=== PATIENT | male | born 1955 | race Caucasian/White ===

== ENCOUNTER 2017-01-18 03:38 | Inpatient (IN) | payer OTHER ==
[~2017-01-18] VITALS: Ht 182.9 cm; Wt 101.8 kg
[2017-01-18] VITALS (29 sets, daily range): BP systolic 58–242; BP diastolic 39–123; PULSE 90–154; RESP 12–35; TEMP 95.6–104.7; O2SAT 87–100
[~2017-01-18 03:38] MED LIST: ALPR.5 PO; ASPI81 PO; ATOR10 PO; CARD240C6 PO; CARV3.125 PO; OXYC1SOL5 PO; PRAS10 PO; RAMI2.5 PO
[2017-01-18] MEDS ORDERED: ETOMIDATE 20 MG/10 ML VIAL ONE (03:41)
[2017-01-18] MEDS ORDERED: SODIUM CHLORIDE 0.9% FLUSH 5 ML FLUSH IVF PRN ×2 (04:00→08:30)
[2017-01-18 04:18] LABS: AUTOMATED NEUTROPHIL # 17.2 TH/MM3 (1.8-7.7); BASOPHIL # 0.1 TH/MM3 (0-0.2); BASOPHIL % 0.3 % (0.0-2.0); EOSINOPHIL % 0.1 % (0.0-4.0); HEMATOCRIT 52.9 % (39.0-51.0); LYMPH % 11.8 % (9.0-44.0); LYMPHOCYTE # 2.5 TH/MM3 (1.0-4.8); MEAN CELL VOLUME 95.6 FL (80.0-100.0); MEAN CORPUSCULAR HEMOGLOBIN 31.9 PG (27.0-34.0); MEAN CORPUSCULAR HGB CONC 33.4 % (32.0-36.0); MONO % 5.9 % (0.0-8.0); NEUT % 81.9 % (16.0-70.0); PLATELET COUNT 170 TH/MM3 (150-450); RED BLOOD COUNT 5.54 MIL/MM3 (4.50-5.90); RED CELL DISTRIBUTION WIDTH 13.1 % (11.6-17.2)
[2017-01-18 04:23] LABS: HEMO FLAGS AUTO DIFF
[2017-01-18 04:24] LABS: APTT (PATIENT) 35.6 SEC (24.3-30.1); INTERNATIONAL NORMALIZED RATIO 2.3 RATIO; PROTHROMBIN TIME - PATIENT 26.4 SEC (9.8-11.6)
[2017-01-18] MEDS ORDERED: PROPOFOL 1000 MG/100 ML INJ 100 ML ONE (04:24)
[2017-01-18 04:25] LABS: AMPHETAMINE, URINE NEG (NEG); BARBITURATES, URINE NEG (NEG); COCAINE, URINE NEG (NEG)
[2017-01-18 04:30] LABS: BLOOD, URINE SMALL (NEG); COMMENT (UR) CULT NOT INDICATED; CULTURE IF INDICATED CULT NOT INDICATED; GLUCOSE,URINE 300 mg/dL (NEG); KETONE, URINE 40 mg/dL (NEG); NITRITE,URINE NEG (NEG); URINE COLOR YELLOW (YELLW/STRAW)
[2017-01-18 04:37] LABS: ALKALINE PHOSPHATASE 116 U/L (45-117); TOTAL BILIRUBIN ADULT 1.1 MG/DL (0.2-1.0)
[2017-01-18 04:40] LABS: ALT (GPT) 151 U/L (12-78); ANION GAP 15 MEQ/L (5-15); AST (GOT) 193 U/L (15-37); BICARBONATE 20.7 MEQ/L (21.0-32.0); BLOOD UREA NITROGEN 12 MG/DL (7-18); CHLORIDE 96 MEQ/L (98-107); GLOMERULAR FILTRATION RATE 40 ML/MIN (>89); MAGNESIUM 1.7 MG/DL (1.5-2.5); SODIUM (NA) 132 MEQ/L (136-145)
[2017-01-18] MEDS ORDERED: niCARdipine INJ 25 MG in SODIUM CHLOR 0.9% 250 ML INJ 250 ML IV SCH ×3 (04:45→11:00)
[2017-01-18 04:46] LABS: BLOOD GAS HCO3 18 mmol/L (22-26); BLOOD GAS METHEMOGLOBIN 0.7 % (0-2); BLOOD GAS O2 HGB SATURATION 95 % (90-100); BLOOD GAS PCO2 60 mmHg (38-42); BLOOD GAS PO2 115 mmHG (61-120); BLOOD GAS TOTAL HGB 18.7 G/DL (12.0-16.0); TEMP CORR TO 98.6
[2017-01-18 04:47] LABS: POTASSIUM 3.9 MEQ/L (3.5-5.1)
[2017-01-18 04:47] LABS: CRITICAL VALUE YES; DRAW SITE RT RADIAL; FIO2 100 %; LITER FLOW 15 L/M; NUMBER OF ARTERIAL PUNCTURES 1; OXYGEN DEVICE AMBU; STAT YES; ULNAR PULSE PRESENT
[2017-01-18] MEDS ORDERED: IOHEXOL 350 MG/ML 10 ML VIAL (for RAD DIAG) IV ONE (04:48)
--- NOTE | 2017-01-18 04:57 | RADRPT ---
EXAM DATE/TIME: 01/18/2017 04:18 [facility] COMPARISON: No previous studies available for comparison. INDICATIONS : Altered mental status. Post-code. RADIATION DOSE: 60.95 CTDIvol (mGy) MEDICAL HISTORY : Non-responsive. SURGICAL HISTORY : Non-responsive. ENCOUNTER: Initial ACUITY: 1 day PAIN SCALE: Non-responsive LOCATION: cranial TECHNIQUE: Multiple contiguous axial images were obtained of the head. Using automated exposure control and adj ustment of the mA and/or kV according to patient size, radiation dose was kept as low as reasonably a chievable to obtain optimal diagnostic quality images. FINDINGS: CEREBRUM: Extensive subarachnoid hemorrhage filling the basal cisterns. Hemorrhage extends into the right later al ventricle. Extensive subarachnoid hemorrhage also seen in the sulci of the cerebral hemispheres bi laterally and in the dependent portions of the lateral ventricles bilaterally. Extra-axial hemorrhage is seen anterior to the brainstem. No evidence of midline shift. POSTERIOR FOSSA: The cerebellum and brainstem are intact. The 4th ventricle is midline. The cerebellopontine angle i s unremarkable. EXTRACRANIAL: Mild partial opacification of the frontal, ethmoid, and maxillary sinuses. SKULL: The calvaria is intact. No evidence of skull fracture. CONCLUSION: 1. Extensive subarachnoid hemorrhage bilaterally diffusely. Bilateral lateral ventricle hemorrhage. 2. Prominent pre-pontine and pre-brain stem extra-axial hemorrhage. Luis Mooney MD on January 18, 2017 at 4:49 Board Certified Radiologist. This report was verified electronically.
[2017-01-18] MEDS ORDERED: PHYTONADIONE INJ 10 MG in SODIUM CHLORIDE 0.9% INJ 50 ML IV ONE (05:15)
[2017-01-18] MEDS ORDERED: ETOMIDATE 20 MG/10 ML VIAL IVP ONE (05:15)
[2017-01-18] MEDS ORDERED: PROTHROMBIN COMPLEX CONC INJ 2,000 UNITS in SYRINGE/BAG 1 EA IV ONE (05:15)
[2017-01-18] MEDS ORDERED: SUCCINYLCHOLINE CHLORIDE 200 MG/10 ML VIAL IVP ONE (05:15)
--- NOTE | 2017-01-18 05:37 | RADRPT ---
EXAM DATE/TIME: 01/18/2017 04:18 [facility] COMPARISON: CT BRAIN W/O CONTRAST, January 18, 2017, 4:18. INDICATIONS : Status post-code. IV CONTRAST: 100 cc Omnipaque 350 (iohexol) IV RADIATION DOSE: 28.72 CTDIvol (mGy) MEDICAL HISTORY : Non-responsive. SURGICAL HISTORY : Non-responsive. ENCOUNTER: Initial ACUITY: 1 day PAIN SCALE: Non-responsive LOCATION: cranial TECHNIQUE: Volumetric scanning was performed using a multi-row detector CT scanner. The data was post processed with a variety of visualization algorithms including full volume maximum intensity projection, multi -planar sliding thin slab reformation, curved planar reformation, and surface rendering techniques. Using automated exposure control and adjustment of the mA and/or kV according to patient size, radiat ion dose was kept as low as reasonably achievable to obtain optimal diagnostic quality images. FINDINGS: There is excellent visualization of the major intracranial arteries out to the second-order branch ve ssels. There is no evidence for aneurysm, vessel truncation or stenosis, and no evidence for vascula r malformation. Right vertebral artery is dominant. Extensive subarachnoid hemorrhage is seen in the basal cisterns diffusely. There is also focal acute hematoma at the medial surface of the thalamus on the right and the body of the right lateral ventric le. Prominent parenchymal opacity in the lungs bilaterally. Extensive atherosclerotic disease of the lgaos tid arteries bilaterally. No evidence of high-grade stenosis. CONCLUSION: 1. No intracranial aneurysm identified. 2. Extensive subarachnoid hemorrhage and intraventricular hemorrhage. Hematoma centered in the body o f the right lateral ventricle and medial margin of the right thalamus. Hypertensive hemorrhage origin ating from the thalamus is in the differential diagnosis. Followup MRI may be beneficial. 3. Bilateral upper lung opacity. Luis Mooney MD on January 18, 2017 at 5:19 Board Certified Radiologist. This report was verified electronically.
--- NOTE | 2017-01-18 05:38 | RADRPT ---
EXAM DATE/TIME: 01/18/2017 04:49 [facility] COMPARISON: No previous studies available for comparison. INDICATIONS : Syncopal episode, found unresponsive at home. E-T tube placement. MEDICAL HISTORY : None. SURGICAL HISTORY : None. ENCOUNTER: Initial ACUITY: 1 day PAIN SCORE: Non-responsive. LOCATION: Bilateral chest FINDINGS: Single AP view of the chest. Endotracheal tube is in place with the tip 4 cm above the tonny. Nasoga stric tube is in place with the tip in the stomach. Moderate to severe right mid to upper lung opacit y. Mild left mid to upper lung opacity. No evidence of pneumothorax or pleural effusion. Cardiomedias tinal silhouette within normal limits. CONCLUSION: Right greater than left upper lung pulmonary consolidation. Nasogastric and endotracheal tubes in christina ce.. Luis Mooney MD on January 18, 2017 at 5:36 Board Certified Radiologist. This report was verified electronically.
--- NOTE | 2017-01-18 05:41 | PD ---
HPI Chief Complaint: Code Blue Time Seen by Provider: 03:55 Travel History International Travel<30 days: No Contact w/Intl Traveler<30days: No Traveled to known affect area: No History of Present Illness HPI This is Luisito TorresPHILIP 1955, 60 year-old man history of in June of last year, minimal contact with the health care system before that. Brought in by EMS obtunded. Patient was reportedly found down in his closet. His states today with the bed together maybe a little bit before she found him down. The history is a little bit unclear. EMS reports that when they found him he was cyanotic and mottled, and not breathing. They did chest compressions and CPR. Then got return of spontaneous circulation. Atypically intubated. He had a lot of fluid in the airway. They placed a Combitube. EMS initially called a STEMI alert because of ST changes on the EKG. History Past Medical History Narrative Medical A. fib Medical History: Unable to Obtain Past Surgical History Surgical History: Unable to Obtain Social History Tobacco Use: Yes Allergies-Medications (Allergen,Severity, Reaction): Coded Allergies: UNOBTAINABLE (Unverified , 01/18/17) Reported Meds & Prescriptions Reported Meds & Active Scripts Active Active Prescriptions or Reported Medications Unobtainable Review of Systems Except as stated in HPI: all other systems reviewed are Neg Physical Exam Narrative GENERAL: Obtunded 60 year-old man, ill-appearing, mottled and cyanotic. SKIN: Warm and dry. EYES: Pupils equal and round. No scleral icterus. No injection or drainage. ENT: No nasal bleeding or discharge. Mucous membranes pink and moist. NECK: Trachea midline. No JVD. CARDIOVASCULAR: Heart rate rapid. No appreciable murmurs. RESPIRATORY: Rapid abnormal breathing. Coarse breath sounds. GASTROINTESTINAL: Abdomen soft, non-tender, nondistended. Hepatic and splenic margins not palpable. MUSCULOSKELETAL: Normal bulk and tone. No gross deformity. NEUROLOGICAL: Obtunded. No response to any stimuli. Rapid abnormal breathing. Data Data Last Documented VS Vital Signs Date Time Temp Pulse Resp B/P Pulse Ox O2 Delivery O2 Flow Rate FiO2 01/18/17 03:45 140 18 180/118 90 01/18/17 03:45 99.2 01/18/17 03:45 Bag Valve Orders Etomidate Inj (Amidate Inj) (01/18/17 03:41) Electrocardiogram (01/18/17 03:55) Complete Blood Count With Diff (01/18/17 03:55) Comprehensive Metabolic Panel (01/18/17 03:55) Magnesium (Mg) (01/18/17 03:55) Prothrombin Time / Inr (Pt) (01/18/17 03:55) Act Partial Throm Time (Ptt) (01/18/17 03:55) Troponin I (01/18/17 03:55) Chest, Single Ap (01/18/17 03:55) Ecg Monitoring (01/18/17 03:55) Bilateral Bp Monitoring (01/18/17 03:55) Iv Access Insert/Monitor (01/18/17 03:55) Oximetry (01/18/17 03:55) Oxygen Administration (01/18/17 03:55) Sodium Chloride 0.9% Flush (Ns Flush) (01/18/17 04:00) Lactic Acid Sepsis Protocol (01/18/17 03:55) Influenzae A/B Antigen (01/18/17 03:55) Blood Culture (01/18/17 03:55) Ct Brain W/O Iv Contrast(Rout) (01/18/17 ) Drug Screen, Random Urine (01/18/17 03:55) Urinalysis - C+S If Indicated (01/18/17 03:55) Propofol 1000 Mg/100 Ml Inj (Diprivan 10 (01/18/17 04:24) Cta Brain W Iv Contrast W 3d (01/18/17 ) Nicardipine Inj (Cardene Inj) (01/18/17 04:45) Arterial Blood Gas (Abg) (01/18/17 04:03) Iohexol 350 Inj (Omnipaque 350 Inj) (01/18/17 04:48) Arterial Blood Gas (Abg) (01/18/17 ) Vitamin K (01/18/17 04:58) Prothrombin Complex Conc Inj (Kcentra In (01/18/17 05:15) Phytonadione Inj (Vitamin K Inj) (01/18/17 05:15) Ng Gastric Tube Insert/Monitor (01/18/17 05:12) Urinary Catheter Insert/Apply (01/18/17 05:12) Etomidate Inj (Amidate Inj) (01/18/17 05:15) Succinylcholine Inj (Quelicin Inj) (01/18/17 05:15) Restraints Non-Violent TEDDY.Q3H (01/18/17 05:12) Labs Laboratory Tests Test 01/18/17 01/18/17 04:00 04:03 White Blood Count 21.0 TH/MM3 Red Blood Count 5.54 MIL/MM3 Hemoglobin 17.7 GM/DL Hematocrit 52.9 % Mean Corpuscular Volume 95.6 FL Mean Corpuscular Hemoglobin 31.9 PG Mean Corpuscular Hemoglobin 33.4 % Concent Red Cell Distribution Width 13.1 % Platelet Count 170 TH/MM3 Mean Platelet Volume 10.4 FL Neutrophils (%) (Auto) 81.9 % Lymphocytes (%) (Auto) 11.8 % Monocytes (%) (Auto) 5.9 % Eosinophils (%) (Auto) 0.1 % Basophils (%) (Auto) 0.3 % Neutrophils # (Auto) 17.2 TH/MM3 Lymphocytes # (Auto) 2.5 TH/MM3 Monocytes # (Auto) 1.2 TH/MM3 Eosinophils # (Auto) 0.0 TH/MM3 Basophils # (Auto) 0.1 TH/MM3 CBC Comment AUTO DIFF Prothrombin Time 26.4 SEC Prothromb Time International 2.3 RATIO Ratio Activated Partial 35.6 SEC Thromboplast Time Urine Color YELLOW Urine Turbidity CLEAR Urine pH 7.0 Urine Specific [place] 1.019 Urine Protein 300 mg/dL Urine Glucose (UA) 300 mg/dL Urine Ketones 40 mg/dL Urine Occult Blood SMALL Urine Nitrite NEG Urine Bilirubin NEG Urine Urobilinogen LESS THAN 2.0 MG/DL Urine Leukocyte Esterase NEG Urine RBC 12 /hpf Urine WBC 6 /hpf Microscopic Urinalysis Comment CULT NOT INDICATED Sodium Level 132 MEQ/L Potassium Level 3.9 MEQ/L Chloride Level 96 MEQ/L Carbon Dioxide Level 20.7 MEQ/L Anion Gap 15 MEQ/L Blood Urea Nitrogen 12 MG/DL Creatinine 1.51 MG/DL Estimat Glomerular Filtration 40 ML/MIN Rate Random Glucose 248 MG/DL Lactic Acid Level 4.8 mmol/L Calcium Level 8.4 MG/DL Magnesium Level 1.7 MG/DL Total Bilirubin 1.1 MG/DL Aspartate Amino Transf 193 U/L (AST/SGOT) Alanine Aminotransferase 151 U/L (ALT/SGPT) Alkaline Phosphatase 116 U/L Troponin I 0.94 NG/ML Total Protein 7.2 GM/DL Albumin 3.5 GM/DL Urine Opiates Screen NEG Urine Barbiturates Screen NEG Urine Amphetamines Screen NEG Urine Benzodiazepines Screen POS Urine Cocaine Screen NEG Urine Cannabinoids Screen NEG Blood Gas Puncture Site RT RADIAL Blood Gas Patient Temperature 98.6 Blood Gas HCO3 18 mmol/L Blood Gas Base Excess -10.0 mmol/L Blood Gas Oxygen Saturation 95 % Arterial Blood pH 7.11 Arterial Blood Partial 60 mmHg Pressure CO2 Arterial Blood Partial 115 mmHG Pressure O2 Arterial Blood Oxygen Content 25.0 Vol % Arterial Blood 0.0 % Carboxyhemoglobin Arterial Blood Methemoglobin 0.7 % Blood Gas Hemoglobin 18.7 G/DL Oxygen Delivery Device AMBU Blood Gas Liter Flow 15 L/M Blood Gas Inspired Oxygen 100 % [facility] Medical Decision Making Medical Screen Exam Complete: Yes Emergency Medical Condition: Yes Interpretation(s) LABS: CBC remarkable for leukocytosis, elevated H&H CMP remarkable for elevated glucose, elevated creatinine, elevated total bili and AST ALT Troponin 0.94 Lactate 4.8 ABG 7.11/60/1:15/18, base excess -10 UA with protein and glucose Urine tox positive for benzos My review of Chest x-ray: Right sided infiltrates. ET tube in good position. Head CT: Since his subarachnoid hemorrhage bilateral, diffusely. Bilateral lateral ventricle hemorrhage. Prominent pre-Pontene and pre-brainstem extra- axial hemorrhage. Differential Diagnosis VT, ICH, tumor, seizure, drugs, infection, sepsis, other Narrative Course Medical decision making This is a 60-year-old man who presented obtunded of unclear etiology. There is some concern for VT initially. EKG done on arrival did not show any ST elevation VT. Patient looked poorly perfused with cyanosis and mottling despite a high blood pressure. Rapid bedside ultrasound did not show evidence of hemorrhage. He had reportedly some rectal bleeding. Rectal exam showed a bleeding hemorrhoid. High concern for ICH. Patient was taken to head CT which confirmed intracerebral bleed. INR also returned elevated. Further medical information was also obtained for the whitish of the patient was on warfarin. Case central was ordered. I spoke to neurosurgery is aware the patient will follow. I spoke to radiology who states that the bleed is suspicious for aneurysmal bleed however they do not see anything on the initial on reconstructed CTA. We'll follow the CTA results. Blood pressure remained elevated in nicardipine drip was started. Patient will be admitted to the ICU. Critical Care Narrative Aggregate critical care time was 45 minutes. Time to perform other separately billable procedures was not included in the critical care time. My time did not include minutes spent treating any other patients simultaneously or on activities that did not directly contribute to the patient's treatment. The services I provided to this patient were to treat and/or prevent clinically significant deterioration that could result in: , disability, stroke, increased morbidity, unrecognized intracerebral bleed, other I provided critical care services requiring my management, as noted below: Chart data review, documentation time, medication orders and management, vital sign assessments/reviewing monitor data, ordering and reviewing lab tests, ordering and interpreting/reviewing x-rays and diagnostic studies, care of the patient and discussion of the patient with the admitting physicians. Procedures Procedure Narrative INTUBATION: The patient was put in optimal position for the procedure. Rapid sequence intubation was initiated by me using 20 milligrams of etomidate IV and 100 milligrams of succinylcholine IV. The patient was intubated with a 8.0 cuffed endotracheal tube. Tube placement was confirmed by visualization of the tube and balloon passing through the cords, capnometry and subsequent chest x- ray. Breath sounds were equal and well aerated bilaterally postintubation. No breath sounds over stomach. Patient tolerated procedure well. Point of care ultrasound: Rapid point of care ultrasound was performed by myself at the bedside to evaluate for the etiology of patient's apparent shock. Heart rate is rapid. EF appeared grossly normal. There is no evidence of pneumothorax. There is no evidence of AAA. There is no fluid in the abdomen. Diagnosis Primary Impression: Acute intra-cranial hemorrhage Additional Impression: Cardiac arrest Admitting Information Admitting Physician Requests: Admit Scripts Unable to Obtain Active Prescriptions or Reported Meds Geovanni Pike MD Jan 18, 2017 05:41
[2017-01-18 05:49] LABS: SCAN/DIFF AUTO DIFF CONFIRMED
[2017-01-18] MEDS ORDERED: fentaNYL DRIP 250 ML ONE (06:11)
[2017-01-18 06:12] LABS: LACTIC ACID GHOST NOT REPORTABLE
[2017-01-18] MEDS ORDERED: fentaNYL DRIP 250 ML IV SCH (06:15)
[2017-01-18 06:21] LABS: BLOOD GAS BASE EXCESS -10.1 mmol/L (-2-2); BLOOD GAS CARBOXYHEMOGLOBIN 0.3 % (0-4); BLOOD GAS HCO3 17 mmol/L (22-26); BLOOD GAS METHEMOGLOBIN 0.9 % (0-2); BLOOD GAS O2 HGB SATURATION 89 % (90-100); BLOOD GAS OXYGEN CONTENT 25.7 Vol % (12.0-20.0); BLOOD GAS PCO2 53 mmHg (38-42); BLOOD GAS PO2 75 mmHG (61-120); BLOOD GAS TOTAL HGB 20.7 G/DL (12.0-16.0); CRITICAL VALUE YES; TEMP CORR TO 98.6
[2017-01-18 06:22] LABS: DRAW SITE RT RADIAL; FIO2 100 %; NUMBER OF ARTERIAL PUNCTURES 1; OXYGEN DEVICE VENTILATOR; STAT YES; ULNAR PULSE PRESENT; VENT SETTINGS PRVC
[2017-01-18] MEDS: SODIUM CHLOR 0.9% 1000 ML INJ 1,000 ML IV SCH ×3 (06:30→20:23)
[2017-01-18] MEDS ORDERED: PROPOFOL 1000 MG/100 ML INJ 100 ML IV SCH ×2 (06:30→08:30)
[2017-01-18] MEDS ORDERED: ACETAMINOPHEN 1000 MG/100 ML VIAL IV ONE (06:30)
[2017-01-18] MEDS ORDERED: MISCELLANEOUS NURSING INFORMATION XX SCH (06:30)
[2017-01-18] MEDS ORDERED: RESP: ALBUTEROL 2.5 MG/IPRATROPIUM 0.5 MG NEB (PRN) INH (06:30)
[2017-01-18] MEDS ORDERED: CHLORHEXIDINE GLUCONATE 2 % 1 PACK (2 CLOTHS) TOP PRN (06:30)
[2017-01-18] MEDS ORDERED: ACETAMINOPHEN 325 MG TAB PO PRN (06:30)
[2017-01-18] MEDS ORDERED: SODIUM CHLORIDE 0.9% FLUSH 5 ML FLUSH IV FLUSH PRN (06:30)
[2017-01-18] MEDS ORDERED: ONDANSETRON HCL 4 MG/2 ML VIAL IV PRN (06:30)
--- NOTE | 2017-01-18 06:51 | HHI.HP ---
[facility] Service Critical Care Medicine Primary Care Physician Denis Miranda, DO Admission Diagnosis intracranial hemorrhage, cardiac arrest Diagnosis: Chief Complaint: Found down at home, CPR delayed. Travel History International Travel<30 Days: No Contact w/Intl Traveler <30 Da: No Traveled to Known Affected Are: No History of Present Illness About 60 year old man found down at home by after delay. EMS found asystole and started CPR. In ED found to have diffuse SAH with no aneurysm. Past Family Social History Allergies: Coded Allergies: UNOBTAINABLE (Unverified , 01/18/17) Past Medical History Past Medical History Narrative Medical A. fib Medical History: Unable to Obtain Past Surgical History Surgical History: Unable to Obtain Social History Tobacco Use: Yes Allergies-Medications Allergies-Medications (Allergen,Severity, Reaction): Coded Allergies: UNOBTAINABLE (Unverified , 01/18/17) Reported Meds & Prescriptions Reported Meds & Active Scripts Active Active Prescriptions or Reported Medications Unobtainable Physical Exam Vital Signs Vital Signs Date Time Temp Pulse Resp B/P Pulse Ox O2 Delivery O2 Flow Rate FiO2 01/18/17 05:59 100 01/18/17 04:15 107 16 184/111 95 01/18/17 04:05 120 24 179/113 99 01/18/17 04:00 114 12 217/109 92 01/18/17 03:50 124 16 201/121 99 01/18/17 03:47 100 01/18/17 03:45 140 18 180/118 90 01/18/17 03:45 124 30 95 01/18/17 03:45 120 20 171/113 99 01/18/17 03:45 99.2 124 35 180/121 92 01/18/17 03:45 99 Bag Valve 01/18/17 03:45 120 30 92 Bag Valve Physical Exam PE: P 148, BP 179/97, R 30, Sats 98%, temp 104 Head: Atraumatic. Neck: Supple, orally intubated. Lungs: Diffuse sonorous rhonchi, good shabbir air movement. Heart: Tachycardia, no JVD. Abdomen> Soft, no guarding. Healed right subcostal scar. BS quiet. Extremities: Mottled, poorly perfused. Toes cold. Neuro: Right pupil 4 mm, left 2 mm. Both minimally reactive. No spontaneous movement. Breathes over vent. Laboratory Laboratory Tests Test 01/18/17 01/18/17 01/18/17 04:00 04:03 06:00 White Blood Count 21.0 Red Blood Count 5.54 Hemoglobin 17.7 Hematocrit 52.9 Mean Corpuscular Volume 95.6 Mean Corpuscular Hemoglobin 31.9 Mean Corpuscular Hemoglobin 33.4 Concent Red Cell Distribution Width 13.1 Platelet Count 170 Mean Platelet Volume 10.4 Neutrophils (%) (Auto) 81.9 Lymphocytes (%) (Auto) 11.8 Monocytes (%) (Auto) 5.9 Eosinophils (%) (Auto) 0.1 Basophils (%) (Auto) 0.3 Neutrophils # (Auto) 17.2 Lymphocytes # (Auto) 2.5 Monocytes # (Auto) 1.2 Eosinophils # (Auto) 0.0 Basophils # (Auto) 0.1 CBC Comment AUTO DIFF Differential Comment AUTO DIFF CONFIRMED Prothrombin Time 26.4 Prothromb Time International 2.3 Ratio Activated Partial 35.6 Thromboplast Time Urine Color YELLOW Urine Turbidity CLEAR Urine pH 7.0 Urine Specific [place] 1.019 Urine Protein 300 Urine Glucose (UA) 300 Urine Ketones 40 Urine Occult Blood SMALL Urine Nitrite NEG Urine Bilirubin NEG Urine Urobilinogen LESS THAN 2.0 Urine Leukocyte Esterase NEG Urine RBC 12 Urine WBC 6 Microscopic Urinalysis Comment CULT NOT INDICATED Sodium Level 132 Potassium Level 3.9 Chloride Level 96 Carbon Dioxide Level 20.7 Anion Gap 15 Blood Urea Nitrogen 12 Creatinine 1.51 Estimat Glomerular Filtration 40 Rate Random Glucose 248 Lactic Acid Level 4.8 Calcium Level 8.4 Magnesium Level 1.7 Total Bilirubin 1.1 Aspartate Amino Transf 193 (AST/SGOT) Alanine Aminotransferase 151 (ALT/SGPT) Alkaline Phosphatase 116 Troponin I 0.94 Total Protein 7.2 Albumin 3.5 Urine Opiates Screen NEG Urine Barbiturates Screen NEG Urine Amphetamines Screen NEG Urine Benzodiazepines Screen POS Urine Cocaine Screen NEG Urine Cannabinoids Screen NEG Blood Gas Puncture Site RT RADIAL RT RADIAL Blood Gas Patient Temperature 98.6 98.6 Blood Gas HCO3 18 17 Blood Gas Base Excess -10.0 -10.1 Blood Gas Oxygen Saturation 95 89 Arterial Blood pH 7.11 7.14 Arterial Blood Partial 60 53 Pressure CO2 Arterial Blood Partial 115 75 Pressure O2 Arterial Blood Oxygen Content 25.0 25.7 Arterial Blood 0.0 0.3 Carboxyhemoglobin Arterial Blood Methemoglobin 0.7 0.9 Blood Gas Hemoglobin 18.7 20.7 Oxygen Delivery Device AMBU VENTILATOR Blood Gas Liter Flow 15 Blood Gas Inspired Oxygen 100 100 Blood Gas Ventilator Setting [facility] Date/Time Procedure Status Source Growth 01/18/17 04:05 Aerobic Blood Culture Received Blood Peripheral Pending 01/18/17 04:05 Anaerobic Blood Culture Received Blood Peripheral Pending Result Diagram: 01/18/17 0400 01/18/17 0400 Assessment and Plan Problem List: (1) Cardiac arrest ICD Code: I46.9 Status: Acute (2) SAH (subarachnoid hemorrhage) ICD Code: I60.9 Status: Acute (3) Acute respiratory failure with hypoxia ICD Code: J96.01 Status: Acute (4) Coagulopathy ICD Code: D68.9 Status: Acute (5) CKD (chronic kidney disease) ICD Code: N18.9 Status: Acute (6) NAOMI (acute kidney injury) ICD Code: N17.9 Status: Acute (7) Pneumonia ICD Code: J18.9 Status: Acute Assessment and Plan Plan: 1. Maintain SBP < 140 until aneurysm ruled out. 2. Cardene gtt. 3. Hydration with NS. 4. Protonix. 5. No chemical DVT px 6. PRVC vent mode. 7. EtCO2 in neutral range. 8. Cardiac markers, serial. 9. SCDs. 10. Followup coag profile. Overall impression: He is critically ill following an [id number], unwitnessed cardiac arrest. Found to have a subarachnoid hemorrhage, possibly from a fall or spontaneous. Prognosis is guarded at best. Critical care 40 mins aside from procedures. Aashish Jean MD Jan 18, 2017 06:51
[2017-01-18] MEDS: PIPERACIL-TAZO 3.375 GM PREMIX 50 ML IV SCH ×3 (07:36→20:25)
[2017-01-18] MEDS: CHLORHEXIDINE 0.12% (ORAL KIT) 15 ML CUP MT SCH (08:00)
[2017-01-18] MEDS: LEVOFLOXACIN 750 MG PREMIX INJ 150 ML IV SCH (08:00)
[2017-01-18 08:01] LABS: INTERNATIONAL NORMALIZED RATIO 1.2 RATIO; PROTHROMBIN TIME - PATIENT 13.6 SEC (9.8-11.6)
[2017-01-18] MEDS ORDERED: LABETALOL HCL 100 MG/20 ML VIAL IV PRN (08:30)
--- NOTE | 2017-01-18 08:33 | PD.OP ---
Operative Report Date of Surgery: Jan 18, 2017 Preoperative Diagnosis: Right intraventricular hemorrhage along with a diffuse subarachnoid hemorrhage Postoperative Diagnosis: Same Procedure: Right frontal twist drill hole ventriculostomy placement Anesthesia: Local with sedation Surgeon: Messi Piedra M.D. Battery Filler(s): None Operation and Findings: Following continuation of Diprivan and fentanyl drips with the oxygen saturation and hemodynamic monitoring in the intensive care unit, the right frontal region was shaved and the prep with chlor prep and sterilely draped. Using landmarks of 11 cm behind the nasion and 3 cm to the right of the midline , a 1 cm scalp incision was made after infiltrating with 1% lidocaine with epinephrine solution. With a handheld drill a twist drill hole was made in the underlying dura penetrated with a blunt probe. The bactiseal ventriculostomy catheter was then passed into the lateral ventricle at a depth of 8 cm bloody CSF encountered with an opening pressure around 18 cm H20. After drainage of 10 mL CSF the pressures was down to 10 cm H20. The distal end of the ventriculostomy was then tunneled under the scalp with a trocar and secured to the exit site with a 3-0 nylon thigh and connected to a drainage bag. Scalp incision site was approximated with 3-0 nylon interrupted stitches A sterile dressing was applied. There were no complications and blood loss was less than 5 cc. Messi Piedra MD Jan 18, 2017 08:33
[2017-01-18] MEDS: PANTOPRAZOLE SODIUM 40 MG VIAL IV SCH (09:00)
[2017-01-18] MEDS: SODIUM CHLORIDE 0.9% FLUSH 5 ML FLUSH IVF SCH (09:00)
[2017-01-18] MEDS: LACTULOSE SYRUP 20 GM/30 ML CUP PO SCH (09:00)
[2017-01-18] MEDS: SODIUM CHLORIDE 0.9% FLUSH 5 ML FLUSH IV FLUSH SCH (09:00)
--- NOTE | 2017-01-18 09:12 | MB ---
cc: ANAMARIA CORBIN D.O., ROHIT K. M.D. DATE OF CONSULTATION: 01/18/2017 REASON FOR CONSULTATION Intracranial hemorrhage. HISTORY OF PRESENT ILLNESS This is a 60-year-old gentleman who was brought to [facility] Emergency Room after he was found unresponsive this morning on the floor by his . He was defibrillated and apparently was in asystole by the paramedics on arrival and also had a Combitube placed for respiratory arrest. He presented to the emergency room and was hypertensive with initial blood pressure systolic in the 180s along with tachycardia. The Combitube was converted to an endotracheal tube and he has been on ventilator support with a Cardene drip along with Diprivan and fentanyl. His Lawson Coma Score was a 3 on arrival and has not improved despite resuscitation. A CT scan of the head obtained reveals extensive subarachnoid hemorrhage involving bilateral convexities as well as the basal cisterns along with hemorrhage overlying the tentorium. There is also intraventricular hemorrhage of the body of the right lateral ventricle around the thalamus as well as occipital horns with moderate hydrocephalus. No discrete or large intraparenchymal hemorrhage is noted. He is on chronic Coumadin therapy for atrial fibrillation and also on aspirin and Plavix therapy for myocardial infarction last October and had stents placed at that time. His PT and INR are elevated at 26.4 and 2.3 on arrival. The relates that yesterday the patient started complaining of a headache and also vomited at one point. He does have a history of hypertension and he takes medications for this. PAST MEDICAL HISTORY 1. Atrial fibrillation. 2. Myocardial infarction, status post coronary stenting in October 2016. 3. Hypertension. 4. Hyperlipidemia. MEDICATIONS 1. Coumadin. 2. Aspirin. 3. Plavix. 4. Along with blood pressure medications. SOCIAL HISTORY He is and his is here with him as well as some other family members. Reportedly he does smoke cigarettes. REVIEW OF SYSTEMS Unobtainable. The patient is comatose. LABORATORY FINDINGS PT 26.4, INR 2.3, PTT 35.6. Sodium 132, potassium 3.9, BUN 12, creatinine 1.51, glucose 248, lactic acid 4.8. Troponin 0.94. White blood cell count 21, hemoglobin 17.7, platelet count 170. PHYSICAL EXAMINATION VITAL SIGNS: Temperature 102.6, pulse 144, respiratory rate 20, blood pressure 213/92 on a Cardene drip, Diprivan and fentanyl drips. His ABGs reveal a pH of 7.14 with PCO2 53, oxygen saturation 89%, PO2 75 on 100% FIO2. HEAD: No Billy's or raccoon sign. NECK: Supple. No guarding or rigidity. CHEST: Clear to auscultation bilaterally. HEART: Tachycardia. Irregular rhythm. ABDOMEN: Soft, nontender. EXTREMITIES: No cyanosis, edema or deformity. NEUROLOGIC: When sedation is withheld he does not open his eyes. Right pupil is 5 mm and nonreactive. Left pupil is 2 mm and nonreactive. Negative corneal. Negative gag. Negative cough reflex. No motor response to painful stimulation. The only viable brainstem reflex is that he has spontaneous respirations over the ventilator. IMPRESSION 1. Extensive subarachnoid hemorrhage involving the basal cisterns as well as the tentorium and bilateral hemispheres as well as intraventricular hemorrhage and occipital horns in the right lateral ventricle body with moderate hydrocephalus and developing MEDICAL EQUIPMENT TECHNICIAN infarcts bilaterally. He is coagulopathic with elevated PT and INR from Coumadin and also on aspirin and Plavix therapy for his recent myocardial infarction and coronary stenting along with atrial fibrillation. 2. Unregulated hypertension. 3. Cardiopulmonary arrest. PLAN The patient has received Kcentra and vitamin-K to correct his PT and INR, and repeat coags are pending. Unfortunately this is a devastating neurologic insult and the likelihood of recovery is extremely poor, and more likely will progress to clinical brain relatively soon in my opinion. He also has other co-morbidities, in particular his cardiac issues and respiratory failure. The obviously is very distraught over his condition and findings and requested that I undertake surgical intervention. The only possibility is to offer ventriculostomy placement to see if this alleviates some of the intracranial pressure and drain the intraventricular hemorrhage, although I doubt this is going to make any difference in his outcome. She is requesting that we proceed with this and accordingly an informed consent was obtained and the procedure undertaken at the bedside in the emergency room. He will be admitted to the surgical intensive care unit with continued supportive care and hypertension regulation. She did relate to me that although he does not have a living will he has expressed his wishes that he would not want prolonged ventilator support should his outcome be dismal. MD ETHAN Green /7:37 AM /7:55 AM
[2017-01-18] MEDS ORDERED: SODIUM BICARBONATE 8.4% INJ 50 MEQ/50 ML SYR ONE ×3 (09:49→10:49)
[2017-01-18] MEDS ORDERED: SODIUM BICARBONATE 8.4% INJ 50 ML ONE (10:50)
[2017-01-18] MEDS ORDERED: SODIUM CHLOR 0.9% 1000 ML INJ 1,000 ML IV ONE (11:00)
[2017-01-18 11:01] LABS: BLOOD GAS BASE EXCESS -10.4 mmol/L (-2-2); BLOOD GAS CARBOXYHEMOGLOBIN 0.5 % (0-4); BLOOD GAS HCO3 16 mmol/L (22-26); BLOOD GAS METHEMOGLOBIN 0.8 % (0-2); BLOOD GAS O2 HGB SATURATION 98 % (90-100); BLOOD GAS OXYGEN CONTENT 25.5 Vol % (12.0-20.0); BLOOD GAS PCO2 40 mmHg (38-42); BLOOD GAS PO2 317 mmHg (61-120); TEMP CORR TO 98.6
[2017-01-18 11:02] LABS: CRITICAL VALUE YES; OXYGEN DEVICE VENTILATOR
[2017-01-18 11:03] LABS: DRAW SITE ART LINE; FIO2 100 %; NUMBER OF ARTERIAL PUNCTURES 0; STAT YES; ULNAR PULSE PRESENT; VENT SETTINGS PRVC/AC
[2017-01-18 15:28] LABS: BLOOD GAS BASE EXCESS -8.9 mmol/L (-2-2); BLOOD GAS CARBOXYHEMOGLOBIN 0.7 % (0-4); BLOOD GAS HCO3 17 mmol/L (22-26); BLOOD GAS METHEMOGLOBIN 0.7 % (0-2); BLOOD GAS O2 HGB SATURATION 95 % (90-100); BLOOD GAS PCO2 36 mmHg (38-42); BLOOD GAS PO2 95 mmHg (61-120); BLOOD GAS TOTAL HGB 17.1 G/DL (12.0-16.0); CRITICAL VALUE YES; OXYGEN DEVICE VENTILATOR; TEMP CORR TO 98.6
[2017-01-18 15:29] LABS: DRAW SITE ART LINE; FIO2 50 %; STAT NO
--- NOTE | 2017-01-18 15:32 | EKG ---
Date Performed: 01/18/2017 Time Performed: 03:47:18 PTAGE: 89 years EKG: SINUS TACHYCARDIA MARKED LEFT AXIS DEVIATION SEPTAL MYOCARDIAL INFARCTION Marked narrow bas ed peaked T waves. Hyperkalemia should be excluded clinically. Myocardial ischemia should also be con sidered and excluded. No prior tracing for comparison ABNORMAL ECG NO PREVIOUS TRACING DOCTOR: Michelle Sesay Interpretating Date/Time 01/18/2017 15:31:54
[2017-01-18 15:38] LABS: BICARBONATE 23.2 MEQ/L (21.0-32.0); POTASSIUM 4.9 MEQ/L (3.5-5.1)
[2017-01-18 16:23] LABS: CALCIUM-PROTEIN CORRECTED 7.9 MG/DL (8.5-10.1)
[2017-01-18] MEDS: fentaNYL DRIP 250 ML IV SCH (20:26)
[2017-01-19] VITALS (16 sets, daily range): BP systolic 118–128; BP diastolic 57–68; PULSE 82–96; RESP 13–19; TEMP 97.8–100.1; O2SAT 96–100
[2017-01-19] MEDS: CHLORHEXIDINE 0.12% (ORAL KIT) 15 ML CUP MT SCH ×3 (00:36→19:58)
[2017-01-19] MEDS: SODIUM CHLORIDE 0.9% FLUSH 5 ML FLUSH IV FLUSH SCH ×3 (00:37→19:58)
[2017-01-19] MEDS: SODIUM CHLORIDE 0.9% FLUSH 5 ML FLUSH IVF SCH ×3 (00:37→19:59)
[2017-01-19] MEDS: SODIUM CHLOR 0.9% 1000 ML INJ 1,000 ML IV SCH ×4 (00:37→19:59)
[2017-01-19 04:08] LABS: BLOOD GAS BASE EXCESS -6.9 mmol/L (-2-2); BLOOD GAS CARBOXYHEMOGLOBIN 0.9 % (0-4); BLOOD GAS HCO3 17 mmol/L (22-26); BLOOD GAS METHEMOGLOBIN 0.8 % (0-2); BLOOD GAS O2 HGB SATURATION 97 % (90-100); BLOOD GAS OXYGEN CONTENT 19.9 Vol % (12.0-20.0); BLOOD GAS PCO2 29 mmHg (38-42); BLOOD GAS PO2 148 mmHg (61-120); BLOOD GAS TOTAL HGB 14.4 G/DL (12.0-16.0); CRITICAL VALUE NO; OXYGEN DEVICE VENTILATOR; TEMP CORR TO 98.6
[2017-01-19 04:09] LABS: VENT SETTINGS PRVC/AC
[2017-01-19 04:10] LABS: DRAW SITE ART LINE; FIO2 50 %; STAT NO
[2017-01-19 06:02] LABS: AUTOMATED NEUTROPHIL # 7.2 TH/MM3 (1.8-7.7); BASOPHIL % 0.4 % (0.0-2.0); EOSINOPHIL % 0.2 % (0.0-4.0); HEMATOCRIT 44.7 % (39.0-51.0); LYMPH % 11.7 % (9.0-44.0); LYMPHOCYTE # 1.1 TH/MM3 (1.0-4.8); MEAN CELL VOLUME 92.4 FL (80.0-100.0); MEAN CORPUSCULAR HEMOGLOBIN 31.9 PG (27.0-34.0); MEAN CORPUSCULAR HGB CONC 34.5 % (32.0-36.0); MONO % 8.3 % (0.0-8.0); NEUT % 79.4 % (16.0-70.0); PLATELET COUNT 69 TH/MM3 (150-450); RED BLOOD COUNT 4.83 MIL/MM3 (4.50-5.90); RED CELL DISTRIBUTION WIDTH 13.3 % (11.6-17.2); WHITE BLOOD COUNT 9.1 TH/MM3 (4.0-11.0)
[2017-01-19 06:12] LABS: PROTHROMBIN TIME - PATIENT 11.5 SEC (9.8-11.6)
[2017-01-19 06:31] LABS: BICARBONATE 21.7 MEQ/L (21.0-32.0); CALCIUM-PROTEIN CORRECTED 7.7 MG/DL (8.5-10.1); MAGNESIUM 1.6 MG/DL (1.5-2.5); POTASSIUM 3.5 MEQ/L (3.5-5.1); TOTAL BILIRUBIN ADULT 0.7 MG/DL (0.2-1.0)
[2017-01-19] MEDS: CHLORHEXIDINE GLUCONATE 2 % 1 PACK (2 CLOTHS) TOP SCH (06:51)
[2017-01-19] MEDS: PIPERACIL-TAZO 3.375 GM PREMIX 50 ML IV SCH ×3 (06:51→19:58)
[2017-01-19 06:55] LABS: HEMO FLAGS AUTO DIFF
[2017-01-19 07:00] LABS: BANDS 33 % (0-6); NEUTROPHIL # MANUAL DIFF 7.4 TH/MM3 (1.8-7.7); PLATELET ESTIMATE SMEAR LOW (NORMAL); PLATELET MORPHOLOGY NORMAL (NORMAL); POLYS (SEG NEUTROPHILS) 48 % (16-70); SCAN/DIFF FINAL DIFF MANUAL; WBC DIFF SAMPLE 100
[2017-01-19] MEDS: LACTULOSE SYRUP 20 GM/30 ML CUP PO SCH (09:00)
[2017-01-19] MEDS: PANTOPRAZOLE SODIUM 40 MG VIAL IV SCH (09:00)
--- NOTE | 2017-01-19 09:51 | HHI.NSPN ---
(Ceasar Gil) History Chief Complaint: Diffuse SAH and right IVH. (Ceasar Gil) Interval History This is a 60-year-old gentleman who was brought to [facility] Emergency Room after he was found unresponsive this morning on the floor by his . He was defibrillated and apparently was in asystole by the paramedics on arrival and also had a Combitube placed for respiratory arrest. He presented to the emergency room and was hypertensive with initial blood pressure systolic in the 180s along with tachycardia. The Combitube was converted to an endotracheal tube and he has been on ventilator support with a Cardene drip along with Diprivan and fentanyl. His Lawson Coma Score was a 3 on arrival and has not improved despite resuscitation. A CT scan of the head obtained reveals extensive subarachnoid hemorrhage involving bilateral convexities as well as the basal cisterns along with hemorrhage overlying the tentorium. There is also intraventricular hemorrhage of the body of the right lateral ventricle around the thalamus as well as occipital horns with moderate hydrocephalus. No discrete or large intraparenchymal hemorrhage is noted. He is on chronic Coumadin therapy for atrial fibrillation and also on aspirin and Plavix therapy for myocardial infarction last October and had stents placed at that time. His PT and INR are elevated at 26.4 and 2.3 on arrival. The relates that yesterday the patient started complaining of a headache and also vomited at one point. He does have a history of hypertension and he takes medications for this. 01/19/17: Pt not opening eyes. Pupils right 3mm slight reaction left 2mm NR. Not following commands. No response to pain for me. Ventriculostomy in place with blood tinged CSF drainage. ICP 3 with good waveform. (Ceasar Gil) System Review Comments Not able to obtain given clinical condition. (Ceasar Gil) Exam Results Vital Signs Date Time Temp Pulse Resp B/P Pulse Ox O2 Delivery O2 Flow Rate FiO2 01/19/17 08:12 98 40 01/19/17 08:00 90 01/19/17 08:00 99.1 14 120/68 01/18/17 03:45 Bag Valve Intake and Output 01/18/17 01/18/17 01/19/17 08:00 16:00 00:00 Intake Total 5062 ml 1660 ml Output Total 707 ml 1856 ml Balance 4355 ml -196 ml (Ceasar Gil) Physical Examination Resp: Intubated. Pressure controlled. Rate 12 FiO2 40% PEEP 10 Heart: NSR no murmurs Abd: Soft positive bs Skin: No cyanosis or erythema. SCDs in place. Muscle: Not following for muscle testing. No response to pain for me this morning. Neuro: Not opening eyes. Right pupil 3mm slight reaction left pupil 2 mm NR. Not following commands. Ventriculostomy in place with blood tinged CSF drainage. Good waveform ICP 3. (Ceasar Gil) Physical Examination Does not open eyes to painful stimulation Right pupil large left Positive cough reflex Does not respond to motor stimulation Spontaneous respirations noted (Messi Piedra MD) Lab, Micro, Other Results Laboratory Tests Test 01/18/17 01/18/17 01/18/17 01/18/17 10:30 14:30 15:17 18:00 Blood Gas Puncture Site ART LINE ART LINE Blood Gas Patient Temperature 98.6 98.6 Blood Gas HCO3 16 mmol/L 17 mmol/L Blood Gas Base Excess -10.4 mmol/L -8.9 mmol/L Blood Gas Oxygen Saturation 98 % 95 % Arterial Blood pH 7.22 7.28 Arterial Blood Partial 40 mmHg 36 mmHg Pressure CO2 Arterial Blood Partial 317 mmHg 95 mmHg Pressure O2 Arterial Blood Oxygen Content 25.5 Vol % 23.0 Vol % Arterial Blood 0.5 % 0.7 % Carboxyhemoglobin Arterial Blood Methemoglobin 0.8 % 0.7 % Blood Gas Hemoglobin 18.0 G/DL 17.1 G/DL Oxygen Delivery Device VENTILATOR VENTILATOR Blood Gas Ventilator Setting PRVC/AC Blood Gas Inspired Oxygen 100 % 50 % Sodium Level 142 MEQ/L Potassium Level 4.9 MEQ/L Chloride Level 104 MEQ/L Carbon Dioxide Level 23.2 MEQ/L Anion Gap 15 MEQ/L Blood Urea Nitrogen 17 MG/DL Creatinine 1.78 MG/DL Estimat Glomerular Filtration 39 ML/MIN Rate Random Glucose 117 MG/DL Lactic Acid Level 5.9 mmol/L 1.5 mmol/L Calcium Level 7.4 MG/DL Protein Corrected Calcium 7.9 MG/DL Total Protein 6.1 GM/DL Troponin I 15.50 NG/ML Test 01/19/17 01/19/17 04:00 05:45 Blood Gas Puncture Site ART LINE Blood Gas Patient Temperature 98.6 Blood Gas HCO3 17 mmol/L Blood Gas Base Excess -6.9 mmol/L Blood Gas Oxygen Saturation 97 % Arterial Blood pH 7.39 Arterial Blood Partial 29 mmHg Pressure CO2 Arterial Blood Partial 148 mmHg Pressure O2 Arterial Blood Oxygen Content 19.9 Vol % Arterial Blood 0.9 % Carboxyhemoglobin Arterial Blood Methemoglobin 0.8 % Blood Gas Hemoglobin 14.4 G/DL Oxygen Delivery Device VENTILATOR Blood Gas Ventilator Setting PRVC/AC Blood Gas Inspired Oxygen 50 % White Blood Count 9.1 TH/MM3 Red Blood Count 4.83 MIL/MM3 Hemoglobin 15.4 GM/DL Hematocrit 44.7 % Mean Corpuscular Volume 92.4 FL Mean Corpuscular Hemoglobin 31.9 PG Mean Corpuscular Hemoglobin 34.5 % Concent Red Cell Distribution Width 13.3 % Platelet Count 69 TH/MM3 Mean Platelet Volume 10.1 FL Neutrophils (%) (Auto) 79.4 % Lymphocytes (%) (Auto) 11.7 % Monocytes (%) (Auto) 8.3 % Eosinophils (%) (Auto) 0.2 % Basophils (%) (Auto) 0.4 % Neutrophils # (Auto) 7.2 TH/MM3 Lymphocytes # (Auto) 1.1 TH/MM3 Monocytes # (Auto) 0.8 TH/MM3 Eosinophils # (Auto) 0.0 TH/MM3 Basophils # (Auto) 0.0 TH/MM3 CBC Comment AUTO DIFF Differential Total Cells 100 Counted Neutrophils % (Manual) 48 % Band Neutrophils % 33 % Lymphocytes % 11 % Monocytes % 8 % Neutrophils # (Manual) 7.4 TH/MM3 Differential Comment FINAL DIFF MANUAL Platelet Estimate LOW Platelet Morphology Comment NORMAL Red Cell Morphology Comment NORMAL Prothrombin Time 11.5 SEC Prothromb Time International 1.0 RATIO Ratio Sodium Level 147 MEQ/L Potassium Level 3.5 MEQ/L Chloride Level 113 MEQ/L Carbon Dioxide Level 21.7 MEQ/L Anion Gap 12 MEQ/L Blood Urea Nitrogen 17 MG/DL Creatinine 0.86 MG/DL Estimat Glomerular Filtration 90 ML/MIN Rate Random Glucose 123 MG/DL Lactic Acid Level 1.3 mmol/L Calcium Level 6.7 MG/DL Protein Corrected Calcium 7.7 MG/DL Phosphorus Level 1.9 MG/DL Magnesium Level 1.6 MG/DL Total Bilirubin 0.7 MG/DL Aspartate Amino Transf 191 U/L (AST/SGOT) Alanine Aminotransferase 85 U/L (ALT/SGPT) Alkaline Phosphatase 49 U/L Total Protein 5.2 GM/DL Albumin 2.3 GM/DL 01/18/17 01/18/17 01/19/17 15:00 23:00 07:00 Intake Total 5062 ml 1660 ml 1546 ml Output Total 707 ml 1856 ml 982 ml Balance 4355 ml -196 ml 564 ml Intake IV Total 5062 ml 1660 ml 1546 ml Output Urine Total 350 ml 900 ml 600 ml Stool Total 2 ml 600 ml 180 ml Gastric Drainage Total 300 ml 200 ml 50 ml Drainage Total 55 ml 156 ml 152 ml (Ceasar Gil) Medical Decision Making Impression and Plan A: 1. Extensive subarachnoid hemorrhage involving the basal cisterns as well as the tentorium and bilateral hemispheres as well as intraventricular hemorrhage and occipital horns in the right lateral ventricle body with moderate hydrocephalus and developing DIRECTOR OF QUANTITATIVE RESEARCH infarcts bilaterally. He is coagulopathic with elevated PT and INR from Coumadin and also on aspirin and Plavix therapy for his recent myocardial infarction and coronary stenting along with atrial fibrillation. 2. Unregulated hypertension. 3. Cardiopulmonary arrest. PLAN Continue with supportive care Reportedly family flying in and then they want to withdraw. (Ceasar Gil) Attending Statement The exam, history, and the medical decision-making described in the above note were completed with the assistance of the mid-level provider. I reviewed and agree with the findings presented. I attest that I had a [id number] encounter with the patient on the same day, and personally performed and documented my assessment and findings in the medical record. Ventriculostomy draining bloody CSF abnormal ICPs although exam remains poor. has made the patient DNR and relates that she wants to withdraw ventilatory support once their son arrives tonight from [place] of [place]. Given that his overall likelihood of functional recovery is very poor we will honor her wishes. Discussed with and other family members at bedside. Discussed with slat grader Dr. Jean who is in agreement. (Messi Piedra MD) Ceasar Gil Jan 19, 2017 09:51 Messi Piedra MD Jan 19, 2017 18:18
[2017-01-19] MEDS ORDERED: ASPI1TAB69 PO (12:37)
[2017-01-19] MEDS ORDERED: CARV3.12 PO (12:37)
[2017-01-19] MEDS: fentaNYL DRIP 250 ML IV SCH (12:37)
[2017-01-19] MEDS ORDERED: ATOR40TA16 PO (12:37)
[2017-01-19] MEDS ORDERED: CART240C PO (12:37)
[2017-01-19] MEDS ORDERED: RAMI10CA PO (12:37)
[2017-01-19] MEDS ORDERED: ALPR0.5T3 PO (12:37)
[2017-01-19] MEDS ORDERED: JANT4TAB PO (12:37)
[2017-01-19] MEDS ORDERED: PLAV75TA29 PO (12:37)
--- NOTE | 2017-01-19 13:22 | HHI.CCPN ---
Subjective Remarks/Hospital Course About 60 year old man found down at home by after delay. EMS found asystole and started CPR. In ED found to have diffuse SAH with no aneurysm. 01/19: Unresponsive. Severe brain injury after SAH. Severe headache two days ago with vomiting. Family request compassionate extubation and DNR/comfort measures when his son arrives. Arrangements made, exhibits B & C completed. Objective Vital Signs Date Time Temp Pulse Resp B/P Pulse Ox O2 Delivery O2 Flow Rate FiO2 01/19/17 12:00 40 01/19/17 12:00 99.4 90 13 96 126/62 01/18/17 03:45 Bag Valve Intake and Output 01/18/17 01/18/17 01/19/17 08:00 16:00 00:00 Intake Total 5062 ml 1660 ml Output Total 707 ml 1856 ml Balance 4355 ml -196 ml Result Diagram: 01/19/17 0545 01/19/17 0545 Other Results Laboratory Tests Test 01/18/17 01/19/17 15:17 04:00 Blood Gas Puncture Site ART LINE ART LINE Blood Gas Patient Temperature 98.6 98.6 Blood Gas HCO3 17 mmol/L 17 mmol/L (22-26) (22-26) Blood Gas Base Excess -8.9 mmol/L -6.9 mmol/L (-2-2) (-2-2) Blood Gas Oxygen Saturation 95 % (90-100) 97 % (90-100) Arterial Blood pH 7.28 7.39 (7.380-7.420) (7.380-7.420) Arterial Blood Partial 36 mmHg (38-42) 29 mmHg (38-42) Pressure CO2 Arterial Blood Partial 95 mmHg 148 mmHg Pressure O2 (61-120) (61-120) Arterial Blood Oxygen Content 23.0 Vol % 19.9 Vol % (12.0-20.0) (12.0-20.0) Arterial Blood 0.7 % (0-4) 0.9 % (0-4) Carboxyhemoglobin Arterial Blood Methemoglobin 0.7 % (0-2) 0.8 % (0-2) Blood Gas Hemoglobin 17.1 G/DL 14.4 G/DL (12.0-16.0) (12.0-16.0) Oxygen Delivery Device VENTILATOR VENTILATOR Blood Gas Ventilator Setting PRVC/AC Blood Gas Inspired Oxygen 50 % 50 % Objective Remarks PE: P 90, BP 126/62, R 13, Sats 96%, temp 99.4 Head: Atraumatic. Ventric in place, draining. Neck: Supple, orally intubated. Lungs: Diffuse rhonchi, good shabbir air movement. No wheezes. Heart: Tachycardia, no JVD. NL S1S2 Abdomen: Soft, no guarding. Healed right subcostal scar. BS quiet. Extremities: Tepid lower extremities, poorly perfused. Neuro: Right pupil 4 mm, left 2 mm. Both minimally reactive. No spontaneous movement. Breathes at set vent rate only A/P Problem List: (1) Cardiac arrest ICD Code: I46.9 Status: Acute (2) SAH (subarachnoid hemorrhage) ICD Code: I60.9 Status: Acute (3) Acute respiratory failure with hypoxia ICD Code: J96.01 Status: Acute (4) Coagulopathy ICD Code: D68.9 Status: Acute (5) CKD (chronic kidney disease) ICD Code: N18.9 Status: Acute (6) NAOMI (acute kidney injury) ICD Code: N17.9 Status: Acute (7) Pneumonia ICD Code: J18.9 Status: Acute Assessment and Plan Plan: 1. Maintain SBP < 160 2. Cardene gtt. prn 3. Hydration with NS. 4. Protonix. 5. No chemical DVT px 6. PRVC vent mode. 7. EtCO2 in neutral range. 8. Cardiac markers, serial. 9. SCDs. 10. Followup coag profile. 11. ABX for prehospital pneumonia. Overall impression: He remains critically ill following an [id number], unwitnessed cardiac arrest. Subarachnoid hemorrhage, possibly from a fall but probably spontaneous. No neurological improvement. Prognosis is guarded at best. Critical care 36 mins Aashish Jean MD Jan 19, 2017 13:22
[2017-01-19] MEDS ORDERED: LORazepam 2 MG/ML VIAL IV PUSH ONE (18:30)
[2017-01-19] MEDS ORDERED: HYOSCYAMINE SOLN 0.125 MG/ML 15 ML BTL PO ONE (18:30)
[2017-01-19] MEDS ORDERED: MORPHINE SULFATE 8 MG/ML INJ IV PUSH ONE (18:30)
[2017-01-20] VITALS (10 sets, daily range): BP systolic 124–140; BP diastolic 58–68; PULSE 72–92; RESP 16–17; TEMP 100–100.2; O2SAT 96–100
[2017-01-20] MEDS: fentaNYL DRIP 250 ML IV SCH (00:10)
[2017-01-20] MEDS: CHLORHEXIDINE GLUCONATE 2 % 1 PACK (2 CLOTHS) TOP SCH (04:00)
[2017-01-20] MEDS: PIPERACIL-TAZO 3.375 GM PREMIX 50 ML IV SCH (05:08)
[2017-01-20] MEDS: SODIUM CHLOR 0.9% 1000 ML INJ 1,000 ML IV SCH ×2 (05:10→11:50)
--- NOTE | 2017-01-20 05:20 | RADRPT ---
EXAM DATE/TIME: 01/20/2017 04:10 [facility] COMPARISON: CHEST SINGLE AP, January 18, 2017, 4:49. INDICATIONS : Shortness of breath. MEDICAL HISTORY : Non-responsive SURGICAL HISTORY : Non-responsive ENCOUNTER: Subsequent ACUITY: 3 days PAIN SCORE: Non-responsive. LOCATION: Bilateral chest FINDINGS: 2 AP views of the chest. Endotracheal tube, nasogastric tube, and left subclavian central venous cath eter remain in place. Decrease in diffuse right lung opacity with inferior shift of the opacity. Left lung is clear. No evidence of pleural effusion or pneumothorax. Cardiomediastinal silhouette unchang ed. CONCLUSION: Decrease and inferior shift of right lung parenchymal opacity. Luis Mooney MD on January 20, 2017 at 5:16 Board Certified Radiologist. This report was verified electronically.
[2017-01-20] MEDS: LEVOFLOXACIN 750 MG PREMIX INJ 150 ML IV SCH (08:00)
[2017-01-20] MEDS ORDERED: MORPHINE SULFATE 8 MG/ML INJ IV PUSH ONE ×2 (08:30→18:00)
[2017-01-20] MEDS ORDERED: LORazepam 2 MG/ML VIAL IV PUSH ONE ×2 (08:30→18:00)
[2017-01-20] MEDS ORDERED: HYOSCYAMINE SOLN 0.125 MG/ML 15 ML BTL PO ONE (08:30)
--- NOTE | 2017-01-20 08:42 | HHI.CCPN ---
Subjective Remarks/Hospital Course About 60 year old man found down at home by after delay. EMS found asystole and started CPR. In ED found to have diffuse SAH with no aneurysm. 01/19: Unresponsive. Severe brain injury after SAH. Severe headache two days ago with vomiting. Family request compassionate extubation and DNR/comfort measures when his son arrives. Arrangements made, exhibits B & C completed. 01/20: Remains unresponsive. Family plans for withdrawal today. Objective Vital Signs Date Time Temp Pulse Resp B/P Pulse Ox O2 Delivery O2 Flow Rate FiO2 01/20/17 08:18 100 T-piece 98 01/20/17 08:00 100.0 72 17 126/58 Intake and Output 01/19/17 01/19/17 01/20/17 08:00 16:00 00:00 Intake Total 1546 ml 1192 ml 1264 ml Output Total 982 ml 540 ml 551 ml Balance 564 ml 652 ml 713 ml Result Diagram: 01/19/17 0545 01/19/17 0545 Objective Remarks PE: P 90, BP 126/62, R 13, Sats 96%, temp 99.4 Head: Atraumatic. Ventric in place, draining. Neck: Supple, orally intubated. Lungs: Diffuse rhonchi, good shabbir air movement. No wheezes. Heart: Tachycardia, no JVD. NL S1S2 Abdomen: Soft, no guarding. Healed right subcostal scar. BS quiet. Extremities: Tepid lower extremities, poorly perfused. Neuro: Right pupil 4 mm, left 2 mm. Both minimally reactive. No spontaneous movement. Breathes at set vent rate only A/P Problem List: (1) Cardiac arrest ICD Code: I46.9 Status: Acute (2) SAH (subarachnoid hemorrhage) ICD Code: I60.9 Status: Acute (3) Acute respiratory failure with hypoxia ICD Code: J96.01 Status: Acute (4) Coagulopathy ICD Code: D68.9 Status: Acute (5) CKD (chronic kidney disease) ICD Code: N18.9 Status: Acute (6) NAOMI (acute kidney injury) ICD Code: N17.9 Status: Acute (7) Pneumonia ICD Code: J18.9 Status: Acute Assessment and Plan Plan: 1. Maintain SBP < 160 2. Cardene gtt. prn 3. Hydration with NS. 4. Protonix. 5. No chemical DVT px 6. PRVC vent mode. 7. EtCO2 in neutral range. 8. Cardiac markers, serial. 9. SCDs. 10. Followup coag profile. 11. ABX for prehospital pneumonia. Overall impression: He remains critically ill following an [id number], unwitnessed cardiac arrest. Subarachnoid hemorrhage, spontaneous at home preceded cardiac event. No neurological improvement. Prognosis is guarded at best. Update 1730 hours: Patient has suffered a devastating intracranial hemorrhage and has severe brain injury. There is no hope for survival. Compassionate extubation was performed about 5 hours ago. Patient is especially tolerant to our sedation dosing and is clearly struggling. He is choking and sputtering and the family is quite distressed. The 4 family members specifically requested increased sedation and analgesia to assure them that he is not suffering. The 4 family members have been very polite and and appreciative of our efforts to keep him comfortable; expressing their praise for the nursing staff. We will comply with their request. Aashish Jean MD Jan 20, 2017 08:42
[2017-01-20] MEDS: LACTULOSE SYRUP 20 GM/30 ML CUP PO SCH (09:00)
[2017-01-20] MEDS: SODIUM CHLORIDE 0.9% FLUSH 5 ML FLUSH IV FLUSH SCH (09:00)
[2017-01-20] MEDS: SODIUM CHLORIDE 0.9% FLUSH 5 ML FLUSH IVF SCH ×2 (09:00→19:45)
[2017-01-20] MEDS: PANTOPRAZOLE SODIUM 40 MG VIAL IV SCH (09:00)
[2017-01-20] MEDS: CHLORHEXIDINE 0.12% (ORAL KIT) 15 ML CUP MT SCH ×2 (09:16→19:45)
[2017-01-20] MEDS: LORazepam 2 MG/ML VIAL IV PUSH PRN ×12 (10:05→23:52)
[2017-01-20] MEDS: MORPHINE SULFATE 8 MG/ML INJ IV PUSH PRN ×13 (10:12→23:53)
[2017-01-20] MEDS: HYOSCYAMINE IV SCH ×6 (11:50→18:10)
[2017-01-20] MEDS: HYOSCYAMINE IV PRN (20:25)
[2017-01-21] VITALS: BP 108/50; PULSE 132; RESP 11; O2SAT 48
[2017-01-21] MEDS: HYOSCYAMINE IV PRN ×2 (00:07→02:50)
[2017-01-21] MEDS: LORazepam 2 MG/ML VIAL IV PUSH PRN ×3 (01:19→03:51)
[2017-01-21] MEDS: MORPHINE SULFATE 8 MG/ML INJ IV PUSH PRN ×3 (01:20→03:51)
[2017-01-21 04:00] VITALS: BP 92/49; PULSE 137; RESP 12; O2SAT 46
[2017-01-21] MEDS: CHLORHEXIDINE GLUCONATE 2 % 1 PACK (2 CLOTHS) TOP SCH (04:00)
--- NOTE | 2017-01-21 09:04 | DEATH SUM ---
Summary Demographics Date Pronounced : Jan 21, 2017 Time Of : 0500 Pronounced By: WADE GOEL RN, CODY PICKENS RN Preliminary Cause of : Other (Spontaneous subarachnoid hemorrhage, cardiac arrest) Aashish Jean MD Jan 21, 2017 09:04
--- NOTE | 2017-01-21 09:12 | HHI.DS ---
Discharge Summary Admission Date Jan 18, 2017 at 05:35 Discharge Date: Jan 21, 2017 Admitting Diagnosis intracranial hemorrhage, cardiac arrest Procedures External Ventriculostomy Drain Brief History About 60 year old man found down at home by after delay. EMS found asystole and started CPR. In ED found to have diffuse SAH with no aneurysm. CBC/BMP: 01/19/17 0545 01/19/17 0545 Significant Findings Laboratory Tests Test 01/18/17 01/18/17 01/18/17 01/18/17 10:30 14:30 15:17 18:00 Blood Gas HCO3 16 mmol/L 17 mmol/L (22-26) (22-26) Blood Gas Base Excess -10.4 mmol/L -8.9 mmol/L (-2-2) (-2-2) Arterial Blood pH 7.22 7.28 (7.380-7.420) (7.380-7.420) Arterial Blood Partial 317 mmHg Pressure O2 (61-120) Arterial Blood Oxygen Content 25.5 Vol % 23.0 Vol % (12.0-20.0) (12.0-20.0) Blood Gas Hemoglobin 18.0 G/DL 17.1 G/DL (12.0-16.0) (12.0-16.0) Creatinine 1.78 MG/DL (0.60-1.30) Estimat Glomerular Filtration 39 ML/MIN (>89) Rate Random Glucose 117 MG/DL (74-106) Lactic Acid Level 5.9 mmol/L (0.4-2.0) Calcium Level 7.4 MG/DL (8.5-10.1) Protein Corrected Calcium 7.9 MG/DL (8.5-10.1) Total Protein 6.1 GM/DL (6.4-8.2) Arterial Blood Partial 36 mmHg (38-42) Pressure CO2 Troponin I 15.50 NG/ML (0.02-0.05) Test 01/19/17 01/19/17 04:00 05:45 Blood Gas HCO3 17 mmol/L (22-26) Blood Gas Base Excess -6.9 mmol/L (-2-2) Arterial Blood Partial 29 mmHg (38-42) Pressure CO2 Arterial Blood Partial 148 mmHg Pressure O2 (61-120) Platelet Count 69 TH/MM3 (150-450) Neutrophils (%) (Auto) 79.4 % (16.0-70.0) Monocytes (%) (Auto) 8.3 % (0.0-8.0) Band Neutrophils % 33 % (0-6) Platelet Estimate LOW (NORMAL) Sodium Level 147 MEQ/L (136-145) Chloride Level 113 MEQ/L (98-107) Random Glucose 123 MG/DL (74-106) Calcium Level 6.7 MG/DL (8.5-10.1) Protein Corrected Calcium 7.7 MG/DL (8.5-10.1) Phosphorus Level 1.9 MG/DL (2.5-4.9) Aspartate Amino Transf 191 U/L (15-37) (AST/SGOT) Alanine Aminotransferase 85 U/L (12-78) (ALT/SGPT) Total Protein 5.2 GM/DL (6.4-8.2) Albumin 2.3 GM/DL (3.4-5.0) Imaging CT Head CTA Head PE at Discharge Unresponsive after severe brain injury. Hospital Course About 60 year old man found down at home by after delay. EMS found asystole and started CPR. In ED found to have diffuse SAH with no aneurysm. 01/19: Unresponsive. Severe brain injury after SAH. Severe headache two days ago with vomiting. Family request compassionate extubation and DNR/comfort measures when his son arrives. Arrangements made, exhibits B & C completed. 01/20: Remains unresponsive. Family plans for withdrawal today. Pt Condition on Discharge: Deteriorating Discharge Instructions Additional Information Withdrawal of artificial support at family request after cardiac arrest and anoxic brain injury. Inciting event was spontaneous subarachnoid hemorrhage. Aashish Jean MD Jan 21, 2017 09:12
== END 2017-01-21 09:40 | disposition expired | DRG 23 ==
LOC: NEPE 03:38 → MERGE 05:35 → NEDA 05:35 → EDBD 05:35 → N03A 08:45
PROVIDERS: ADMIT Internal Medicine Critical Care Medicine; ATTEND Internal Medicine Critical Care Medicine
PROC: 009630Z Drainage of Cerebral Ventricle with Drainage Device, Percutaneous Approach (ICD-10-PCS; principal; 2017-01-18)
PROC: 0BH17EZ Insertion of Endotracheal Airway into Trachea, Via Natural or Artificial Opening (ICD-10-PCS; 2017-01-18)
PROC: 5A1945Z Respiratory Ventilation, 24-96 Consecutive Hours (ICD-10-PCS; 2017-01-18)
DX: I60.9 Nontraumatic subarachnoid hemorrhage, unspecified (principal); J96.01 Acute respiratory failure with hypoxia; I46.9 Cardiac arrest, cause unspecified; N17.9 Acute kidney failure, unspecified; J18.9 Pneumonia, unspecified organism; D68.32 Hemorrhagic disorder due to extrinsic circulating anticoagulants; T45.515A Adverse effect of anticoagulants, initial encounter; F17.210 Nicotine dependence, cigarettes, uncomplicated; K64.9 Unspecified hemorrhoids; Z79.01 Long term (current) use of anticoagulants; Z79.02 Long term (current) use of antithrombotics/antiplatelets; Z79.82 Long term (current) use of aspirin; I48.91 Unspecified atrial fibrillation; I25.2 Old myocardial infarction; Z95.5 Presence of coronary angioplasty implant and graft; I12.9 Hypertensive chronic kidney disease with stage 1 through stage 4 chronic kidney disease, or unspecified chronic kidney disease; N18.9 Chronic kidney disease, unspecified; E78.5 Hyperlipidemia, unspecified; Z51.5 Encounter for palliative care; Z66 Do not resuscitate; Y92.008 Other place in unspecified non-institutional (private) residence as the place of occurrence of the external cause
CPT/HCPCS: 31500; 36556; 36600; 51702; 61210; 70450; 70496; 71010; 76937; 80048; 80053; 80307; 81001; 82805; 83605; 83735; 84100; 84155; 84484; 85007; 85025; 85027; 85610; 85730; 87040; 93005; 94002; 94003; 94770; 96374; C9113; C9132; J0131; J0330; J2060; J2270; J2543; J3010; J3430; J7030; J7050; Q9967